=== PATIENT | male | born 1985 | race Two or more races ===

== ENCOUNTER 2022-01-07 05:53 | Outpatient (CLI) | payer OTHER | END 2022-01-07 23:00 | disposition home or self-care (01) | LOC: LAB 05:53 | PROVIDERS: ATTEND Obstetrics & Gynecology | DX: Z20.828 Contact with and (suspected) exposure to other viral communicable diseases (principal); Z20.818 Contact with and (suspected) exposure to other bacterial communicable diseases ==

== ENCOUNTER 2022-05-18 08:37 | Outpatient (CLI) | payer OTHER | END 2022-05-18 08:53 | disposition home or self-care (01) | LOC: MRI 08:37 | DX: M25.512 Pain in left shoulder (principal) | CPT/HCPCS: 73221 ==